=== PATIENT | female | born 2000 | race Caucasian/White ===

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

== ENCOUNTER 2022-03-26 15:39 | Inpatient (IN) ==
--- NOTE | 2022-03-26 17:00 | ED Triage Note ---
Date of Service March 26, 2022 History of Present Illness This patient was briefly evaluated while in triage. An abbreviated physical exam was performed. This patient is a 21-year-old Female for evaluation of dental/oral pain. Referred by Dr. Stack. On antibiotics. Progressing past few days. Now L facial edema. Physical Exam General: L sided facial edema Mouth: Mild inability to open mouth HEART: RRR LUNGS: CTA Initial orders for labs and / or imaging were placed and patient was placed in the waiting area until a bed is available. Please see further documentation for the full ED course.
[2022-03-26 18:20] LABS: Basophils # (auto) 0.03 K/uL (0-0.2); Basophils % (auto) 0.2 %; Eosinophils # (auto) 0.08 K/uL (0-0.5); Eosinophils % (auto) 0.5 %; Hemoglobin 13.7 g/dL (12.0-16.0); Immature Granulocytes # (auto) 0.05 K/uL (0.00-0.02); Immature Granulocytes % (auto) 0.3 %; Lymphocytes # (auto) 2.15 K/uL (1.2-3.4); Lymphocytes % (auto) 13.4 %; Mean Corpuscular Hemoglobin 26.2 pg (25-34); Mean Corpuscular Hgb Conc 33.4 g/dL (32-36); Mean Corpuscular Volume 78.5 fL (80-100); Mean Platelet Volume 9.6 fL (7.4-10.4); Monocytes # (auto) 1.23 K/uL (0.11-0.59); Monocytes % (auto) 7.7 %; Neutrophils # (auto) 12.46 K/uL (1.4-6.5); Neutrophils % (auto) 77.9 %; Platelet Count 328 K/uL (130-400); RDW Coefficient of Variation 13.5 % (11.5-14.5); RDW Standard Deviation 38.4 fL (36.4-46.3); Red Blood Count 5.22 M/uL (4.2-5.4)
[2022-03-26 18:38] LABS: Albumin Globulin Ratio 1.3 (0.9-2); BUN Creatinine Ratio 16.4 (10-20); Bilirubin,Total 0.6 mg/dl (0.2-1.0); Calcium 8.9 mg/dl (8.5-10.1); Creatinine Clr Calc Pharmacy 194.6 ml/min; Est GFR (African American) 149.1 ml/min; Est GFR (Non-African American) 128.7 ml/min; Potassium 3.9 mmol/L (3.5-5.1)
[2022-03-26] MEDS ORDERED: MoRPHine SULFATE 4 MG/ML 1 ML CARP\\VIAL IV STA (18:43)
[2022-03-26] MEDS ORDERED: ONDANSETRON INJ 2 MG/ML 2 ML VIAL IV STA (18:43)
[2022-03-26] MEDS ORDERED: OPTIRAY 320 100ml IV ONE (19:07)
[2022-03-26] MEDS ORDERED: AMPICILLIN/SULBACTAM SOD 3,000 MG in 0.9 % SODIUM CHLORIDE 100 ML IV STA (19:15)
--- NOTE | 2022-03-26 19:18 | Emergency Department Note ---
History of Present Illness General Chief complaint: Dental/Oral Stated complaint: INFECTED TOOTH Time Seen by Provider: 03/26/22 18:25 History of Present Illness Maximum Pain Intensity: 6 This is a 21-year-old female that presents to the emergency department via private vehicle accompanied by mother with complaints of "infected tooth". The patient notes that she began with left-sided facial swelling near the left jaw region on Friday. She believes this was coming from a molar in the region. She believes that the filling fell out. She then placed some [id number] filling substance in the area to help the tooth. She then notes that the swelling seems to worsen as well as the pain. She went to [facility] yesterday morning and was prescribed Augmentin as well as tramadol. She has had a total of 3 doses of Augmentin, last of which was around 3:35 PM today. She has also been taking tramadol. She also has been taking acetaminophen but not more than 4000 mg/day. She did take ibuprofen last of which was yesterday. Patient notes discomfort from the left inferior orbital region through the left premaxillary soft tissues extending to the left anterior neck region. She states that the swelling continues to occur. She was evaluated by dentistry but referred here for further evaluation and management/IV antibiotics noting her amount of involvement of infection. Current pain 03/01. Home Medications Medication Instructions Recorded Confirmed Type amoxicillin 875 mg-potassium 1 tab PO BID 03/26/22 03/26/22 History clavulanate 125 mg tablet Allergies Allergy/AdvReac Type Severity Reaction Status Date / Time sulfamethoxazole [Bactrim] Allergy Intermediate hives Verified 03/26/22 21:17 trimethoprim [Bactrim] Allergy Intermediate hives Verified 03/26/22 21:17 Past Med/Surg History Medical History Anxiety Depression Hypothyroidism Surgical History S/P tonsillectomy and adenoidectomy Family History Other Bipolar disorder Cancer Social History (Updated 03/26/22 @ 21:34 by Nannette Proctor PA-C) Smoking Status: Never smoker Hx Alcohol Use: Yes Alcohol Intake Frequency Comment: infrequent Feels Safe at Home: Yes Review of Systems A total of 10 systems reviewed and were otherwise negative Physical Exam Vital Signs Vital Signs - 24 hr 03/26/22 16:58 Temperature 36.6 C Temperature Source Temporal Artery Scan Pulse Rate 94 H Respiratory Rate 18 Respiratory Effort / Characteristics Non-Labored Respiratory Depth Normal Blood Pressure 122/86 Blood Pressure Mean 98 Pulse Oximetry 97 Oxygen Delivery Method Room Air Sepsis Recent Fever Within 48 Hours No Sepsis New/Unexplained Change in Mental Status No Sepsis Action Taken by Nursing No Action Required VITAL SIGNS - Vital signs and nursing notes were reviewed. Stable and afebrile. GENERAL - 21-year-old female appearing her stated age who is in no acute distress. Communicates well with provider and answers questions appropriately. SKIN -left-sided facial erythema and edema. This is extending from the left inferior orbital region inferiorly through the premaxillary soft tissues into the left anterior neck region. This seems to be focused with the predominant edema overlying the left mid jawline region. HEAD - NC/AT. EYES - PERRL with EOMI bilaterally. Sclera anicteric. EARS - No deformities of external structures noted on gross examination bilaterally. No pain elicited with palpation of the tragus bilaterally. External auditory canals without discharge or otorrhea. Tympanic membranes pearly perez without retraction or bulging. No fluid or purulent material visualized behind the TM. Handle of malleus, umbo, cone of light, pars tensa/flaccid all easily visualized. NOSE - Midline and without cyanosis. No epistaxis or purulent drainage noted. Septum midline without deviation or septal hematoma noted. MOUTH/OROPHARYNX - Without perioral cyanosis. Buccal mucosa pink and moist and without leukoplakia. Tongue midline with equal elevation of palate bilaterally. No tonsillar hypertrophy, erythema, or exudates noted. Fair dentition noted. No drooling, stridor, trismus, wheezing or tripoding. Normal phonation. Left- sided facial edema noted with left anterior cervical lymphadenopathy. NECK - Neck with FROM. Supple to palpation. Left anterior cervical lymphadenopathy noted. No nuchal rigidity. LUNGS - Chest wall symmetric without accessory muscle use, intercostals retractions, or central cyanosis. Normal vesicular breath sounds CTA B/L. No wheezes, rales, or rhonchi appreciated. CARDIAC - RRR with S1/S2. No murmur, rubs, or gallops appreciated. NEUROLOGIC - Cranial nerves II through XII grossly intact. PSYCH - A&Ox3 and cooperates fully with examiner. Pt is very pleasant and interacts well with examiner. Course Administered Medications Lactated Ringer's (Lr) 1,000 mls @ 200 mls/hr IV .Q5H ONE Stop: 03/27/22 01:34 Last Admin: 03/26/22 22:27 Dose: 200 mls/hr Documented by: [id number] Discontinued Medications Ampicillin Sodium/Sulbactam Sodium 3,000 mg/ Sodium Chloride 108 mls @ 200 mls/hr IV NOW STA; Protocol Stop: 03/26/22 19:47 Last Infusion: 03/26/22 20:31 Dose: 0 mls/hr Documented by: [id number] Admin: 03/26/22 19:54 Dose: 200 mls/hr Documented by: [id number] Ioversol (Optiray 320 100ml) 90 ml IV ONCE ONE Stop: 03/26/22 19:08 Last Admin: 03/26/22 19:09 Dose: 90 ml Documented by: [id number] Ketorolac Tromethamine (Ketorolac Tromethamine 15 Mg/Ml Vial) 15 mg IV NOW ONE Stop: 03/26/22 21:34 Last Admin: 03/26/22 21:55 Dose: 15 mg Documented by: [id number] Morphine Sulfate (Morphine Sulfate 4 Mg/Ml 1 Ml Carp\\Vial) 4 mg IV NOW STA Stop: 03/26/22 18:44 Last Admin: 03/26/22 19:19 Dose: 4 mg Documented by: [id number] Ondansetron HCl (Ondansetron Inj 2 Mg/Ml 2 Ml Vial) 4 mg IV NOW STA Stop: 03/26/22 18:44 Last Admin: 03/26/22 19:19 Dose: 4 mg Documented by: [id number] Medical Decision Making Laboratory Data Result diagrams: 03/26/22 17:45 03/26/22 17:45 Lab Results 03/26/22 03/26/22 03/26/22 Range/Units 17:45 17:45 17:45 WBC 16.00 H (4.8-10.8) K/uL RBC 5.22 (4.2-5.4) M/uL Hgb 13.7 (12.0-16.0) g/dL Hct 41.0 (37-47) % MCV 78.5 L (80-100) fL MCH 26.2 (25-34) pg MCHC 33.4 (32-36) g/dL RDW Std Deviation 38.4 (36.4-46.3) fL RDW Coeff of Compa 13.5 (11.5-14.5) % Plt Count 328 (130-400) K/uL MPV 9.6 (7.4-10.4) fL Immature Gran % (Auto) 0.3 % Neut % (Auto) 77.9 % Lymph % (Auto) 13.4 % [place] % (Auto) 7.7 % Eos % (Auto) 0.5 % Baso % (Auto) 0.2 % Neut # (Auto) 12.46 H (1.4-6.5) K/uL Lymph # (Auto) 2.15 (1.2-3.4) K/uL [place] # (Auto) 1.23 H (0.11-0.59) K/uL Eos # (Auto) 0.08 (0-0.5) K/uL Baso # (Auto) 0.03 (0-0.2) K/uL Immature Gran # (Auto) 0.05 H (0.00-0.02) K/uL Sodium 136 (136-145) mmol/L Potassium 3.9 (3.5-5.1) mmol/L Chloride 106 (98-107) mmol/L Carbon Dioxide 23 (21-32) mmol/L Anion Gap 7 (3-11) BUN 10 (6-23) mg/dl Creatinine 0.61 (0.6-1.2) mg/dl Est Cr Clr Drug Dosing 194.6 ml/min Est GFR ( Amer) 149.1 ml/min Est GFR (Non-Af Amer) 128.7 ml/min BUN/Creatinine Ratio 16.4 (10-20) Glucose 105 H (70-99(Fasting)) mg/dl Calcium 8.9 (8.5-10.1) mg/dl Total Bilirubin 0.6 (0.2-1.0) mg/dl AST 11 L (13-39) U/L ALT 6 L (7-52) U/L Alkaline Phosphatase 77 (34-104) U/L Total Protein 7.0 (6.0-8.3) gm/dl Albumin 4.0 (3.4-5.0) gm/dl Globulin 3.0 (2.5-4.0) gm/dl Albumin/Globulin Ratio 1.3 (0.9-2) TSH 5.800 H (0.300-4.500) uIu/ml Free T4 1.07 (0.61-1.60) ng/dl Imaging Data Radiologist's Impression: Soft Tissue Neck CT 03/26/22 17:00 CT soft tissue neck w con CLINICAL HISTORY: L facial pain/edema COMPARISON STUDY: No previous studies for comparison. CT DOSE: 504.69 mGy.cm TECHNIQUE: Standard CT of the Neck was performed with IV contrast. A dose lowering technique was utilized adhering to the principles of ALARA. Contrast Volume: Optiray 320, 90 ml FINDINGS: The patient is status post placement of a dental implant versus root canal involving the first mandibular molar on the left. There is a lucency seen inferior to the root at this site with cortical destruction present. The findings are highly suspicious for dental abscess. There is associated diffuse swelling of the adjacent left side of the face with diffuse edema of the masseter muscles. Skin thickening and subcutaneous edema is also present involving the left side of the face adjacent to the mandible. No enhancing subcutaneous abscess is identified. Salivary glands: Parotid and submandibular salivary glands are within normal limits. The thyroid gland is also within normal limits. Lymph nodes: There are no pathologically enlarged lymph nodes. However, there is mild reactive lymphadenopathy involving the cervical lymph node chains bilaterally. There is no evidence for soft tissue mass within the neck bilaterally. Airway: The cervical airway is widely patent. The epiglottis and aryepiglottic folds are normal bilaterally. The vocal cords are symmetric bilaterally. Vascular structures: No gross vascular abnormalities are seen. Paranasal sinuses: There is prominent mucosal thickening involving the left maxillary sinus. The remaining imaged paranasal sinuses are clear. Osseous structures: No other acute osseous abnormalities are identified. IMPRESSION: 1. CT findings characteristic of a left mandibular dental abscess with prominent soft tissue swelling of the left masseter muscles and subcutaneous fat on the left. 2. Associated reactive lymphadenopathy is present. 3. No enhancing soft tissue abscess is seen. 4. Chronic left maxillary sinusitis is also present. ACT 112: Negative or not required by law. Electronically signed by: Vipin Moore M.D. 03/26/2022 7:28 PM MDM Narrative Patient was seen and evaluated as above in room D07. Review was performed of nursing notes and vital signs. I did review pertinent previous visits and patient history. After obtaining a thorough history and physical examination the above work up was performed. Patient presents to us today for evaluation of left-sided facial swelling, pain. She clinically appears well but does have a fair amount of left-sided facial edema and erythema. This appears to be dental in origin. Options of care were discussed with the patient. IV access was established. Labs were drawn. Patient was initially evaluated in the triage area and then formally evaluated in room D7. She was medicated with IV morphine for pain, IV Zofran for nausea. Labs reveal white blood cell count of 16,000. No anemia. No emergent metabolic disturbance. COVID test negative. CT imaging as above. CT findings characteristic of a left mandibular dental abscess with prominent soft tissue swelling of the left masseter muscles and subcutaneous fat on the left. IV antibiotics ordered. Case discussed with the hospitalist, Dr. Church as well as the on-call oral surgeon, Dr. Marshall. Patient will be admitted to the hospital for further evaluation and management. No evidence of Ludwigs angina at the present time or airway compromise. GCS: 15 In the evaluation and treatment of this patient, the following differential diagnoses were considered: Periapical Abscess, Osteonecrosis of the Jaw, Dental Fracture, Dental Caries, Americo's Angina, Vincent's Angina, Facial Cellulitis. Impression & Plan Cellulitis and abscess of face Discharge Plan Visit Data Chief Complaint: Dental/Oral Stated Complaint: INFECTED TOOTH ED Provider: Ephraim Campbell ED Midlevel Provider: Alan Anne Discharge Problem: Cellulitis and abscess of face Patient Disposition: Admitted As Inpatient Condition: Good Discharge Instructions Interventions: ED Discharge Assessment Last Done: 03/26/22 22:16
--- NOTE | 2022-03-26 19:30 | CT Scan Report ---
CT soft tissue neck w con CLINICAL HISTORY: L facial pain/edema COMPARISON STUDY: No previous studies for comparison. CT DOSE: 504.69 mGy.cm TECHNIQUE: Standard CT of the Neck was performed with IV contrast. A dose lowering technique was ut ilized adhering to the principles of ALARA. Contrast Volume: Optiray 320, 90 ml FINDINGS: The patient is status post placement of a dental implant versus root canal involving the fi rst mandibular molar on the left. There is a lucency seen inferior to the root at this site with armando ical destruction present. The findings are highly suspicious for dental abscess. There is associated diffuse swelling of the adjacent left side of the face with diffuse edema of the masseter muscles. Sk in thickening and subcutaneous edema is also present involving the left side of the face adjacent to the mandible. No enhancing subcutaneous abscess is identified. Salivary glands: Parotid and submandibular salivary glands are within normal limits. The thyroid gland is also within normal limits. Lymph nodes: There are no pathologically enlarged lymph nodes. However, there is mild reactive lympha denopathy involving the cervical lymph node chains bilaterally. There is no evidence for soft tissue mass within the neck bilaterally. Airway: The cervical airway is widely patent. The epiglottis and aryepiglottic folds are normal bilat erally. The vocal cords are symmetric bilaterally. Vascular structures: No gross vascular abnormalities are seen. Paranasal sinuses: There is prominent mucosal thickening involving the left maxillary sinus. The chen ining imaged paranasal sinuses are clear. Osseous structures: No other acute osseous abnormalities are identified. IMPRESSION: 1. CT findings characteristic of a left mandibular dental abscess with prominent soft tissue swelling of the left masseter muscles and subcutaneous fat on the left. 2. Associated reactive lymphadenopathy is present. 3. No enhancing soft tissue abscess is seen. 4. Chronic left maxillary sinusitis is also present. ACT 112: Negative or not required by law. Electronically signed by: Vipin Moore M.D. 03/26/2022 7:28 PM
[2022-03-26] MEDS ORDERED: KETOROLAC TROMETHAMINE 15 MG/ML VIAL IV PRN (20:34)
[2022-03-26] MEDS ORDERED: traMADol HCL 50 MG TABLET PO PRN (20:34)
[2022-03-26] MEDS ORDERED: IBUPROFEN 200 MG TAB PO PRN (20:34)
[2022-03-26] MEDS ORDERED: LACTATED RINGER'S 1,000 ML IV ONE (20:35)
--- NOTE | 2022-03-26 20:43 | History & Physical Report ---
Date of Service March 26, 2022 Assessment & Plan (1) Dental abscess: (2) Anxiety: (3) Depression: (4) Hypothyroidism: Plan: This is a 21yo F with a PMH of depression, anxiety, hypothyroidism and other medical problems listed below who presents with ongoing dental pain and swelling x 4 days and was found to have left mandibular dental abscess. Please see Dr. Church's addendum for assessment and plan details. History of Present Illness Chief Complaint: dental pain Primary Care Provider: Petar Medrano, DO This is a 21yo F with a PMH of depression, anxiety, hypothyroidism and other medical problems listed below who presents with ongoing dental pain x 4 days. Endorses dental pain on lower left side of mouth that is constant and sharp. Developed swelling in that area the next day which has extended towards left ear and neck. Was seen in urgent care yesterday and prescribed Augmentin for infection. Also followed up with dentist in [place] but was referred to ED for further evaluation and IV antibiotics. Has been taking tramadol since prescribed by urgent care as well as ibuprofen and Tylenol that has reduced pain. Has decreased appetite and fluid intake due to difficulty fully opening mouth. No shortness of breath or difficulty breathing. No fever, chills, congestion, chest pain, SOB, nausea, vomiting, abdominal pain, dysuria or diarrhea. Not taking any scheduled medications at home. PCP is Dr. Medrano, whom she is due to have thyroid lab work with. Previously on levothyroxine. VSS, leukocytosis of 16, other lab work unremarkable. Covid screen negative. CT findings characteristic of a left mandibular dental abscess with prominent soft tissue swelling of the left masseter muscles and subcutaneous fat on the left. Allergies Allergy/AdvReac Type Severity Reaction Status Date / Time sulfamethoxazole [Bactrim] Allergy Intermediate hives Verified 03/26/22 21:17 trimethoprim [Bactrim] Allergy Intermediate hives Verified 03/26/22 21:17 Home Medications Medication Instructions Recorded Confirmed Type amoxicillin 875 mg-potassium 1 tab PO BID 03/26/22 03/26/22 History clavulanate 125 mg tablet Past Med/Surg History Medical History Anxiety Depression Hypothyroidism Surgical History S/P tonsillectomy and adenoidectomy Family History Other Bipolar disorder Cancer Social History (Updated 03/26/22 @ 21:34 by Nannette Proctor PA-C) Smoking Status: Never smoker Hx Alcohol Use: Yes Alcohol Intake Frequency Comment: infrequent Feels Safe at Home: Yes Review of Systems Review of Systems: At least ten systems reviewed and negative except as noted in the HPI. Physical Exam Physical Exam: General Appearance: vitals as above, appears ill, morbidly obese Head: normocephalic, atraumatic Eyes: normal inspection, PERRL, conjunctivae normal, anicteric sclerae ENT/neck: external ear and nose normal, edema and erythema of lower left orbital area with extension to premaxillary soft tissues and left anterior neck. Warm and tender to touch. Two finger trismus Respiratory: normal respiratory effort, lungs clear to auscultation, no wheeze, rales, rhonchi. No accessory muscle use Cardiovascular: regular rate, rhythm, no murmur, normal peripheral pulses. Vessels: no JVD Chest: normal inspection of chest Abdomen/GI: normal bowel sounds, soft, nontender, no hepatosplenomegaly Extremities/Musculoskeletal: no cyanosis or clubbing, extremities motor strength 5/5 Neurologic: PERRL, EOMI, accommodation nl, no face palsy, no dysarthria, CN's II-XI intact bilaterally and moves all extremities Psychiatric: A+Ox3, anxious Skin: no rashes, normal color, warm/dry Results & Data Results & Data ([facility]) Vital Signs (Past 12 Hours) Vital Signs Temp Pulse Resp BP Pulse Ox 03/26/22 16:58 36.6 C 94 H 18 122/86 97 Laboratory Results Short CBC 03/26/22 Range/Units 17:45 WBC 16.00 H (4.8-10.8) K/uL Hgb 13.7 (12.0-16.0) g/dL Hct 41.0 (37-47) % Plt Count 328 (130-400) K/uL BMP 03/26/22 17:45 Sodium 136 Potassium 3.9 Chloride 106 Carbon Dioxide 23 BUN 10 Creatinine 0.61 Glucose 105 H Calcium 8.9 Liver Function 07/05/22 Range/Units 17:45 Total Bilirubin 0.6 (0.2-1.0) mg/dl AST 11 L (13-39) U/L ALT 6 L (7-52) U/L Alkaline Phosphatase 77 (34-104) U/L Albumin 4.0 (3.4-5.0) gm/dl Diagnostic Findings Soft tissue neck CT: IMPRESSION: 1. CT findings characteristic of a left mandibular dental abscess with prominent soft tissue swelling of the left masseter muscles and subcutaneous fat on the left. 2. Associated reactive lymphadenopathy is present. 3. No enhancing soft tissue abscess is seen. 4. Chronic left maxillary sinusitis is also present. Supervising Physician Co-Signing Physician Notes IM ATTENDING : Patient seen and examined. History obtained from patient, family, and records. Preceding documentation by Ms. Nannette Proctor PA-C reviewed. FINAL ASSESSMENT AND PLAN as follows : Odontogenic infection Failed outpatient treatment No overt sepsis for now Hypothyroidism, off supplementation the last 2 years as per patient request Patient mother requesting for TSH checked during confinement due to generalized weakness symptoms. F [facility] Oral maxillofacial surgery consultation Re: Odontogenic infection (ER provider already in touch with Dr. Marshall.) N.p.o. after midnight until patient seen by OMFS in anticipation of procedural intervention. Check TSH as per patient's mother request. Patient agreeable to initiation of low-dose medication if abnormal. DVT prophylaxis SCDs. Re: Possible procedure Recommend Lovenox 40 mg subcutaneous daily if no current indication from surgical standpoint. Full code Patient mother requesting updates from providers. Cathy Maile Contreras, contact #[phone]. Text document was generated using [employer] voice recognition software. It may contain grammatical or spelling errors. Kindly contact undersigned for clarification of any documentation item in question.
[2022-03-26] MEDS ORDERED: KETOROLAC TROMETHAMINE 15 MG/ML VIAL IV ONE (21:33)
[2022-03-26 22:30] LABS: Thyroid Stimulating Hormone 5.8 uIu/ml (0.300-4.500)
[2022-03-26] MEDS ORDERED: LORazepam 0.5 MG in SYRINGE 0.25 ML IV PRN (22:52)
[2022-03-26] MEDS ORDERED: PROMETHAZINE HCL 12.5 MG in SODIUM CHLORIDE 0.9% 50 ML IV PRN (22:52)
[2022-03-26] MEDS ORDERED: oxyCODONE HCL IR 5 MG TAB (IMMEDIATE RELEASE) PO PRN (22:52)
[2022-03-26 23:38] LABS: T4 Free Thyroxine 1.07 ng/dl (0.61-1.60)
[2022-03-27] MEDS: AMPICILLIN/SULBACTAM SOD 3,000 MG in 0.9 % SODIUM CHLORIDE 100 ML IV SCH ×4 (02:53→21:01)
[2022-03-27] MEDS: LACTATED RINGER'S 1,000 ML IV SCH ×2 (02:53→14:47)
[2022-03-27] MEDS: ACETAMINOPHEN 325 MG TAB PO PRN ×3 (05:52→22:20)
[2022-03-27 08:12] LABS: Basophils # (auto) 0.02 K/uL (0-0.2); Basophils % (auto) 0.2 %; Eosinophils % (auto) 0.8 %; Hematocrit (blood only) 37.5 % (37-47); Hemoglobin 12.2 g/dL (12.0-16.0); Immature Granulocytes # (auto) 0.03 K/uL (0.00-0.02); Immature Granulocytes % (auto) 0.2 %; Lymphocytes # (auto) 1.88 K/uL (1.2-3.4); Lymphocytes % (auto) 15.6 %; Mean Corpuscular Hemoglobin 25.7 pg (25-34); Mean Corpuscular Hgb Conc 32.5 g/dL (32-36); Mean Corpuscular Volume 78.9 fL (80-100); Mean Platelet Volume 9.3 fL (7.4-10.4); Monocytes # (auto) 0.91 K/uL (0.11-0.59); Monocytes % (auto) 7.5 %; Neutrophils # (auto) 9.14 K/uL (1.4-6.5); Neutrophils % (auto) 75.7 %; Platelet Count 316 K/uL (130-400); RDW Coefficient of Variation 13.4 % (11.5-14.5); RDW Standard Deviation 38.7 fL (36.4-46.3); Red Blood Count 4.75 M/uL (4.2-5.4); White Blood Count 12.08 K/uL (4.8-10.8)
[2022-03-27 08:36] LABS: Anion Gap 6 (3-11); BUN Creatinine Ratio 16.9 (10-20); Blood Urea Nitrogen 10 mg/dl (6-23); Calcium 8.3 mg/dl (8.5-10.1); Carbon Dioxide 26 mmol/L (21-32); Chloride 104 mmol/L (98-107); Creatinine Clr Calc Pharmacy 198.5 ml/min; Est GFR (African American) > 150.0 ml/min; Est GFR (Non-African American) 130.1 ml/min; Glucose 82 mg/dl (70-99(Fasting)); Potassium 3.6 mmol/L (3.5-5.1); Sodium 136 mmol/L (136-145)
--- NOTE | 2022-03-27 10:32 | Oral/Maxillofacial Consult ---
Date of Consultation March 27, 2022 Assessment & Plan (1) Cellulitis and abscess of face: (2) Dental abscess: (3) Failing root canal: History of Present Illness Attending Physician: Stephanie Layne MD History of Present Illness Oral Maxillofacial Surgery Exam Present Complaint: I have pain/swelling/drainage from my infected lower left molar and swelling left side of the jaw. Symptoms have been ongoing for a while. Had an incomplete root canal on # 18 now grossly infected. Oral Exam: Finding--Swollen carious tooth, tender gingival tissue with deep pocket formation.# 18 removal is clinical indicated. Imaging: Panorex: The Panorex X Ray was reviewed, there were no abnormal findings other then the impacted/malposed wisdom teeth and a carious abscessed # 19 and # 20 The TMJ are well positioned and no evidence of bony pathology. The sinus, supporting bone all WNL Evaluated the nerve/sinus relationship to the roots of the teeth. The following teeth were impacted # 1,16,17,32 The following teeth are abscessed and failing root canals--19 and 20 -- large radiolucent areas are present Soft tissue: Hard swelling left submandibular gland area and left mucobuccal fold. Not yet ready for I and D hopefully tomorrow AM. floor of the mouth, tongue, hard/soft palate, posterior pharyngeal area all with in normal limits, no pathology or abnormal findings noted. Oral Care: Overall oral care is good Occlusion: Class I TMJ exam: Due to limited opening not able to determine Periodontal exam: Overall Healthy gingival tissue without evidence of periodontal pathology. Head/Neck exam: Neck is swollen left side, somewhat limited ROM due to infection .NOT Able to extend and flex neck w/o difficult due to current infection, no airway issues, no evidence of sleep apnea. Treatment Plan: Continue IV antibiotics Get dental x rays from her dentist to see if there is any other extractions that are needed. Set up for Extraction and I&D tomorrow Set up with general anesthesia in hospital all due to complexity of the procedure I reviewed the treatment plan and consent with the patient I will finalize after U see the x rays Need area to become more fluctuant before plan I&D hopefully 24 hours will be ready Pending return from her mother Understanding was expressed. Time was given for questions regarding the surgery, risks and post op care. Discussed alternative to treatment--procedure as planned, Do not do surgery Risks discussed: Bleeding,Pain,swelling,infection, dry socket, delayed healing, nerve injury to face,lips,tongue,chin area which could be permanent (rare). TMJ, jaw stiffness, change in bite (rare), ear pain (referred). Sinus problems like fistula or infection. Need to leave a small root fragment in place to avoid injury to nerve or sinus. Relationship of wisdom teeth to nerve/sinus and risk of jaw fracture. Home care reviewed: tooth brushing, rinsing, follow up care with Dr Marshall. diet=[id number] dental. Discussed activity level, driving/work while on Rx pain Meds. Surgery to be set up once insurance is verified or coverage Allergies Allergy/AdvReac Type Severity Reaction Status Date / Time sulfamethoxazole [Bactrim] Allergy Intermediate hives Verified 03/26/22 21:17 trimethoprim [Bactrim] Allergy Intermediate hives Verified 03/26/22 21:17 Home Medications Medication Instructions Recorded Confirmed Type amoxicillin 875 mg-potassium 1 tab PO BID 03/26/22 03/26/22 History clavulanate 125 mg tablet Patient History Medical History (Updated 03/28/22 @ 11:27 by David Herrera MD) Anxiety Depression Hypothyroidism Obesity Surgical History S/P tonsillectomy and adenoidectomy Family History Other Bipolar disorder Cancer Social History (Updated 03/26/22 @ 21:34 by Nannette Proctor PA-C) Smoking Status: Never smoker Hx Alcohol Use: Yes Alcohol type: hard liquor Alcohol Intake Frequency Comment: infrequent Hx Substance Use: No Preferred Language: Jordanian Communication Ability: Effective Credit Reference Clerk Required: No Beliefs That Will Affect Care: None Current Living Situation: Other Current Living Situation Comment: lives with and cares for grandma Other Information That Helps Us Care for You: No Feels Safe at Home: Yes Safety Concerns: Feels Safe At This Time Assistive Devices: None Results & Data ([facility]) Vital Signs (Past 12 Hours) Vital Signs Temp Pulse Resp BP Pulse Ox 03/27/22 07:56 37.1 C 82 16 104/71 97 03/26/22 22:30 37.4 C 77 20 138/84 98 PG Care Time/CCT Total # of Minutes Spent Total Time Spent with Patient: Total time spent is greater than 50% in coordination of care (as documented) at patient's floor/unit and/or counseling patient: Coding Level of Care Code 10941 Inpt Consult Level 3 Diagnoses Cellulitis and abscess of face L03.211; L02.01 Dental abscess K04.7 Failing root canal M27.59
--- NOTE | 2022-03-27 14:32 | Hospitalist Progress Note ---
Date of Service March 27, 2022 Assessment & Plan (1) Dental abscess: (2) Anxiety: (3) Depression: (4) Hypothyroidism: Plan: 21yo F with a PMH of depression, anxiety, hypothyroidism and other medical problems who presented with ongoing dental pain and swelling x 4 days and was found to have left mandibular dental abscess. Soft tissue neck CT show left mandibular dental abscess with prominent soft tissue swelling of the left masseter muscles and subcutaneous fat in the left. Leukocytosis improving Continue IV Unasyn Oromaxillofacial consult noted Plan for OR tomorrow. Continue full liquid for now and NPO PMN Pain control TSH is 5.8 (elevated) but FT4 is normal 1.07. Patient has been off levothyroxine for past 6 months. PCP to monitor Admission and Anticipated Discharge Date Admission Date: March 26, 2022 Subjective Patient seen and examined Reports left jaw/mouth swelling and pain Reports pain is controlled on current regimen Denied fever, headache, nausea, vomiting, abd pain, diarrhea Denied dysuria, freq, urgency, hematuria Review of Systems Review of Systems: All systems reviewed & are unremarkable except as noted in Subjective Physical Exam Constitutional: + well hydrated and + obese; no acute distress Eyes: PERRL, conjunctivae normal, anicteric sclerae ENMT: Left facial swelling and tenderness Respiratory: normal respiratory effort, lungs clear to auscultation Cardiovascular: RRR, no murmur, no edema Gastrointestinal (Abdomen): normal bowel sounds, soft, nontender, no hepatosplenomegaly Musculoskeletal: no cyanosis or clubbing, extremities motor strength 5/5 Neurologic: PERRL, EOMI, accommodation nl, no face palsy, no dysarthria Psychiatric: A+Ox3, euthymic affect Results & Data Results & Data ([facility]) Vital Signs (Past 12 Hours) Vital Signs Temp Pulse Resp BP Pulse Ox 03/27/22 07:56 37.1 C 82 16 104/71 97 Laboratory Results Abnormal lab results 03/26/22 03/26/22 03/26/22 Range/Units 17:45 17:45 17:45 WBC 16.00 H (4.8-10.8) K/uL MCV 78.5 L (80-100) fL Neut # (Auto) 12.46 H (1.4-6.5) K/uL Pender # (Auto) 1.23 H (0.11-0.59) K/uL Immature Gran # (Auto) 0.05 H (0.00-0.02) K/uL Creatinine (0.6-1.2) mg/dl Glucose 105 H (70-99(Fasting)) mg/dl Calcium (8.5-10.1) mg/dl AST 11 L (13-39) U/L ALT 6 L (7-52) U/L TSH 5.800 H (0.300-4.500) uIu/ml 03/27/22 03/27/22 Range/Units 07:13 07:13 WBC 12.08 H (4.8-10.8) K/uL MCV 78.9 L (80-100) fL Neut # (Auto) 9.14 H (1.4-6.5) K/uL Pender # (Auto) 0.91 H (0.11-0.59) K/uL Immature Gran # (Auto) 0.03 H (0.00-0.02) K/uL Creatinine 0.59 L (0.6-1.2) mg/dl Glucose (70-99(Fasting)) mg/dl Calcium 8.3 L (8.5-10.1) mg/dl AST (13-39) U/L ALT (7-52) U/L TSH (0.300-4.500) uIu/ml
[2022-03-28] MEDS: AMPICILLIN/SULBACTAM SOD 3,000 MG in 0.9 % SODIUM CHLORIDE 100 ML IV SCH ×4 (03:16→21:43)
[2022-03-28] MEDS: LACTATED RINGER'S 1,000 ML IV SCH ×2 (03:20→18:33)
[2022-03-28 07:13] LABS: Hematocrit (blood only) 36.1 % (34.1-44.9); Hemoglobin 11.8 g/dl (12.0-16.0); Mean Corpuscular Hemoglobin 25.9 pg (25.0-34.0); Mean Corpuscular Hgb Conc 32.7 g/dL (32.0-36.0); Mean Corpuscular Volume 79.2 fL (80.0-100.0); Mean Platelet Volume 9.3 fL (9.4-12.3); Platelet Count 308 K/uL (130-400); RDW Standard Deviation 37.1 fL (36.4-46.3); Red Blood Count 4.56 M/uL (3.93-5.22)
[2022-03-28 07:27] LABS: Anion Gap 5 (3-11); BUN Creatinine Ratio 19.6 (10-20); Blood Urea Nitrogen 10 mg/dl (6-23); Calcium 8.4 mg/dl (8.5-10.1); Carbon Dioxide 28 mmol/L (21-32); Chloride 105 mmol/L (98-107); Creatinine Clr Calc Pharmacy 229.6 ml/min; Est GFR (African American) > 150.0 ml/min; Est GFR (Non-African American) 136.5 ml/min; Glucose 86 mg/dl (70-99(Fasting)); Potassium 3.9 mmol/L (3.5-5.1); Sodium 138 mmol/L (136-145)
[2022-03-28] MEDS ORDERED: LIDOCAINE 2% 2 ML VIAL/AMP(20MG/ML) INFIL ONE (10:51)
[2022-03-28] MEDS ORDERED: ROCURONIUM BROMIDE 10 MG/ML 5 ML VIAL IV ONE (10:51)
[2022-03-28] MEDS ORDERED: ONDANSETRON INJ 2 MG/ML 2 ML VIAL ONE (10:51)
[2022-03-28] MEDS ORDERED: DEXAMETHASONE SOD INJ 4 MG/ML VIAL ONE (10:51)
[2022-03-28] MEDS ORDERED: PROPOFOL IV EMULSION 10 MG/ML 20 ML VIAL IV ONE (10:51)
[2022-03-28] MEDS ORDERED: fentaNYL citrate 100 MCG/2 ML VIAL ONE (10:52)
[2022-03-28] MEDS ORDERED: MIDAZOLAM HCL 1 MG/ML 2ML VIAL ONE (10:52)
[2022-03-28] MEDS ORDERED: BUPIVACAINE 0.5 % 5 MG/1 ML MPF 30ML VIAL ONE (10:56)
[2022-03-28] MEDS ORDERED: CHLORHEXIDINE GLUCONATE 0.12% 480 ML ONE (10:56)
[2022-03-28] MEDS ORDERED: STERILE IRRIGATING OPTH SOLUTION (BSS) 15ML ONE (10:56)
[2022-03-28 10:57] LABS: Pregnancy Test, Serum Negative (Negative)
[2022-03-28] MEDS ORDERED: EPINEPHrine INJ 1 MG/ML AMP ONE (10:59)
[2022-03-28] MEDS ORDERED: HYDROmorphone INJ 1 MG/ML SYRINGE IV PRN (11:24)
[2022-03-28] MEDS ORDERED: ONDANSETRON INJ 2 MG/ML 2 ML VIAL IV PRN (11:24)
[2022-03-28] MEDS ORDERED: ePHEDrine sulfate 50 MG/ML AMP IV PRN (11:24)
[2022-03-28] MEDS ORDERED: PROMETHAZINE HCL 6.25 MG in SODIUM CHLORIDE 0.9% 50 ML IV PRN (11:24)
[2022-03-28] MEDS ORDERED: ATROPINE SULFATE 0.1 MG/ML 10ML SYR IV PRN (11:24)
--- NOTE | 2022-03-28 11:28 | Anesthesiology Consultation ---
Date of Service March 28, 2022 Assessment & Plan (1) Encounter for pre-operative examination: Chart Review Chart Review: Acceptable Risk for Surgery and Patient NOT seen in Pre Admission Testing Consults Requested none History Surgery Operation Date: 03/28/22 11:30 Proposed Procedures p Left Side Incision and Drainage - Jeremy Marshall, DMD s Extraction 19 - Jeremy Marshall DMD Height/Weight Height: 5 ft 4 in Weight: 128.1 kg Allergies Allergy/AdvReac Type Severity Reaction Status Date / Time sulfamethoxazole [Bactrim] Allergy Intermediate hives Verified 03/26/22 21:17 trimethoprim [Bactrim] Allergy Intermediate hives Verified 03/26/22 21:17 Medications Home Medications Medication Instructions Recorded Confirmed Last Taken amoxicillin 875 mg-potassium 1 tab PO BID 03/26/22 03/26/22 Unknown clavulanate 125 mg tablet Active Medications Generic Name Dose Route Start Last Admin Trade Name Freq PRN Reason Stop Dose Admin Acetaminophen 650 mg 03/26/22 20:34 03/27/22 22:20 Acetaminophen 325 Mg Tab PO 04/25/22 20:33 650 mg Q6H PRN Administration Fever/pain Lactated Ringer's 1,000 mls @ 80 mls/hr 03/27/22 02:00 03/28/22 03:20 Lr IV 04/26/22 01:59 80 mls/hr .[id number] THOMAS Administration Ampicillin Sodium/Sulbactam 108 mls @ 200 mls/hr 03/27/22 04:00 03/28/22 10:37 Sodium 3,000 mg/ Sodium IV 04/06/22 03:59 Infused Chloride Q6H THOMAS Infusion Protocol NPO Date Last Intake of Fluids: 03/27/22 Time Last Intake of Fluids: 17:00 Date Last Intake of Solids: 03/25/22 Time Last Intake of Solids: 18:00 Past Medical History Medical History (Updated 03/28/22 @ 11:27 by David Herrera MD) Anxiety Depression Hypothyroidism Obesity Exercise / Class Metabolic Activity II 4-5 Yardwork/Stairs/Walk up hill Past Family History Family History Other Bipolar disorder Cancer Past Surgical History Surgical History S/P tonsillectomy and adenoidectomy Past Anesthesia History No Hx of Anesthesia Complications and No Family Hx of Anesthesia Complications History of PONV No Hx of PONV and No Hx of Motion Sickness Social History Smoking Status: Never smoker Hx Alcohol Use: Yes Alcohol type: hard liquor alcohol intake frequency: holidays/special occasions only Hx Substance Use: No substance use type: does not use Physical Exam Vital Signs Last Vital Signs Temp 37.5 C 03/28/22 10:53 Pulse 76 03/28/22 10:53 Resp 18 03/28/22 10:53 BP 124/76 03/28/22 10:53 Pulse Ox 97 03/28/22 10:53 Testing Laboratory Results 03/28/22 06:32 03/28/22 06:32
--- NOTE | 2022-03-28 11:36 | History & Physical Bridge Note ---
Date of Service March 28, 2022 History & Physical Bridge Note I have examined the patient, reviewed the History & Physical and in the interval since the performance of the History & Physical I have noted the following changes of clinical significance: no changes noted Still swollen but now localized to the submandibular area left side and the mucobuccal fold # 19-20 area Reviewed treatment plan OK for surgery
[2022-03-28] MEDS ORDERED: BUPIVACAINE/EPINEPHRINE 0.5% 1:200,000 1.8 ML CARP ONE (11:52)
[2022-03-28] MEDS ORDERED: GLYCOPYRROLATE 0.2 MG/ML VIAL ONE (12:27)
[2022-03-28] MEDS ORDERED: NEOSTIGMINE METHYLSULFATE 1 MG/ML 10ML VIAL ONE (12:27)
--- NOTE | 2022-03-28 12:39 | Operative Report ---
PG Post Operative Report Pre & Post Diagnosis Operation Date: 03/28/22 11:30 Pre-Op Diagnosis: ODONTOGENIC INFECTION left side Post-Op Diagnosis: ODONTOGENIC INFECTION left side from abscessed # 19,20 I identified the patient and participated in the time-out.: Yes Procedure Coding K12.2 CPT 35784 [place] I&D submandibular, raw stock machine loader and sublingual spaces K04.7 [id number] x 2 19,20 Extraction of #19 and #20 Operation Date: 03/28/22 11:30 Actual Procedures p Left Side Incision and Drainage(Not Applicable) - Jeremy Marshall DMD s Extraction of lower left molars tooth 19 & 20(Left) - Jeremy Marshall DMD Surgeon Jeremy Marshall DMD Machine Sorter none Estimated Blood Loss 5 Findings Consistent with Post-Op Diagnosis acute infection left jaw and face Specimens I&D fluid and soft tissue reactive tissue reaction Drains none Anesthesia Type General Complications none Indications acute facial infection Description of Procedure Actual Procedures p Incision and Drainage Submandibular Abscess; Removal of Tooth #19 and 20 (Not Applicable) - Jeremy Marshall DMD Once cleared for surgery general anesthesia was achieved, the eyes were protected by the anesthesia dept criteria. A time out was take for patient ID, antibiotics, equipment and position verification once all agreed the procedure began. Local anesthesia using Marcaine with a vasoconstrictor ( 1.8 ml per site) given into left inferior alveolar nerve A throat pack was placed after the oral cavity was irrigated with saline. Once a surgical level of anesthesia was obtained and the local anesthesia was given time for the blocks the surgery was started. I turned my attention to the infection which was located in the floor of the mouth and submental area. The tongue was elevated and there was also swelling associated with tooth # 28 ( see CT scan report) Incision and Drainage Using a 15 blade an incision was made lateral to the alveolar ridge and medial to the duct of the submandibular gland. Once the incision was made a lot of pus extruded from the site. This drainage was cultured for anaerobic and aerobic bacteria. A curved hemostat was carefully placed into the infected space along the medial side of the lower jaw and into the submental space and submandibular space. The subperiosteal and raw stock machine loader spaces were also drained. A lot more drainage was now allowed to escape. I palpated the cheek, chin and submental area and no further drainage was expressed. The area was irrigated with at least 100 ml of NS solution. I explored the mandibular space. I now turned my attention to remove the # 19,20 tooth. Lower # 19 and 20 The full thick Muco-periosteal flap was made on the facial aspect from # 22-18 area . The flap was reflected to expose the the subperiosteal space the bone adjacent to the teeth. The rongeur was used to remove bone, the tooth was removed with a 301 elevator, the mental nerve was intact, there was a large amount of granulation tissue on the apex and some more pus that was expressed.Upon dissection of the subperiosteal space a very dense foreign body like reactive tissue mass was noted and sent for pathology. Due to the large amount of purulent drainage from the oral I&D I did not see a need fo ran extraoral I&D . I inspected the sites to insure all bleeding was controlled. I removed the throat pack and suctioned the throat. Bilateral gauze pressure dressings were placed. All instrument and sponge count was correct. the patient was allowed to awake from the anesthesia. Once full awake the anesthesia tube was removed and the patient was taken to the recovery room with all vital sign stable. The patient tolerated the surgery very well. I will follow the patient in my office, Rx and instructions will be given upon discharge. I attest to the content of the Intraoperative Record and any orders documented therein. Any exceptions are noted below.
[2022-03-28] MEDS: fentaNYL citrate 100 MCG/2 ML VIAL IV PRN ×4 (13:01→14:10)
--- NOTE | 2022-03-28 16:01 | Anesthesiology Progress Note ---
Date of Service March 28, 2022 Anesthesia Post Procedure Vital Signs Vital Signs: Temp Pulse Pulse Resp BP BP Pulse Ox 03/28/22 15:33 36.6 C 65 16 115/78 95 03/28/22 14:46 37.2 C 68 14 159/90 H 96 03/28/22 14:25 36.9 C 65 16 145/84 H 99 03/28/22 14:10 66 13 137/87 97 03/28/22 13:55 67 12 138/83 98 03/28/22 13:45 71 19 136/82 98 03/28/22 13:35 36.3 C L 67 14 137/84 98 03/28/22 13:25 66 12 130/83 96 03/28/22 13:15 69 13 131/78 98 03/28/22 13:05 65 20 128/75 99 03/28/22 12:55 75 22 128/74 97 03/28/22 12:46 36.2 C L 59 L 21 130/76 99 03/28/22 10:53 37.5 C 76 18 124/76 97 03/28/22 06:07 36.8 C 70 18 106/71 96 03/27/22 22:14 36.9 C 71 16 136/88 97 Pain Intensity Teeth: Pain Intensity: 5 Mouth: Pain Intensity: 3 Transfer of Care Handoff Completed per policy Notes Mental Status: alert / awake / arousable and participated in evaluation Patient Amnestic to Procedure: Yes Nausea / Vomiting: adequately controlled Pain: adequately controlled Airway Patency, RR, SpO2: stable & adequate BP & HR: stable & adequate Hydration State: stable & adequate Anesthetic Complications: no major complications apparent and Pt Satisfied with anesthetic care
--- NOTE | 2022-03-28 16:52 | Hospitalist Progress Note ---
Date of Service March 28, 2022 Assessment & Plan (1) Dental abscess: (2) Anxiety: (3) Depression: (4) Hypothyroidism: Plan: 21yo F with a PMH of depression, anxiety, hypothyroidism and other medical problems who presented with ongoing dental pain and swelling x 4 days and was found to have left mandibular dental abscess. Soft tissue neck CT show left mandibular dental abscess with prominent soft tissue swelling of the left masseter muscles and subcutaneous fat in the left. Leukocytosis resolved S/P Incision and drainage with extraction of left molars 19 and 20 this afternoon Continue IV Unasyn Plan to change to po antibiotic on discharge Continue full liquid for tonight Pain control TSH is 5.8 (elevated) but FT4 is normal 1.07. Patient has been off levothyroxine for past 6 months. PCP to monitor Possible discharge tomorrow to follow up with Oromaxillofacial surgeon outpatient Admission and Anticipated Discharge Date Admission Date: March 26, 2022 Subjective Patient seen and examined on return from OR Reports left jaw/mouth pain is currently controlled Denied fever, headache, nausea, vomiting, abd pain, diarrhea Denied dysuria, freq, urgency, hematuria Denied headache Physical Exam Constitutional: + well hydrated and + obese; no acute distress Eyes: PERRL, conjunctivae normal, anicteric sclerae ENMT: Left facial swelling Respiratory: normal respiratory effort, lungs clear to auscultation Cardiovascular: RRR, no murmur, no edema Gastrointestinal (Abdomen): normal bowel sounds, soft, nontender, no hepatosplenomegaly Musculoskeletal: no cyanosis or clubbing, extremities motor strength 5/5 Neurologic: PERRL, EOMI, accommodation nl, no face palsy, no dysarthria Psychiatric: A+Ox3, euthymic affect Results & Data Results & Data ([facility]) Vital Signs (Past 12 Hours) Vital Signs Temp Pulse Pulse Resp BP BP Pulse Ox 03/28/22 15:33 36.6 C 65 16 115/78 95 03/28/22 14:46 37.2 C 68 14 159/90 H 96 03/28/22 14:25 36.9 C 65 16 145/84 H 99 03/28/22 14:10 66 13 137/87 97 03/28/22 13:55 67 12 138/83 98 03/28/22 13:45 71 19 136/82 98 03/28/22 13:35 36.3 C L 67 14 137/84 98 03/28/22 13:25 66 12 130/83 96 03/28/22 13:15 69 13 131/78 98 03/28/22 13:05 65 20 128/75 99 03/28/22 12:55 75 22 128/74 97 03/28/22 12:46 36.2 C L 59 L 21 130/76 99 03/28/22 10:53 37.5 C 76 18 124/76 97 03/28/22 06:07 36.8 C 70 18 106/71 96
[2022-03-29] MEDS: AMPICILLIN/SULBACTAM SOD 3,000 MG in 0.9 % SODIUM CHLORIDE 100 ML IV SCH ×2 (03:44→09:29)
--- NOTE | 2022-03-29 12:15 | Discharge Summary ---
Date of Service March 29, 2022 Admission HPI Per Admitting Provider This is a 21yo F with a PMH of depression, anxiety, hypothyroidism and other medical problems listed below who presents with ongoing dental pain x 4 days. Endorses dental pain on lower left side of mouth that is constant and sharp. Developed swelling in that area the next day which has extended towards left ear and neck. Was seen in urgent care yesterday and prescribed Augmentin for infection. Also followed up with dentist in [place] but was referred to ED for further evaluation and IV antibiotics. Has been taking tramadol since prescribed by urgent care as well as ibuprofen and Tylenol that has reduced pain. Has decreased appetite and fluid intake due to difficulty fully opening mouth. No shortness of breath or difficulty breathing. No fever, chills, congestion, chest pain, SOB, nausea, vomiting, abdominal pain, dysuria or diarrhea. Not taking any scheduled medications at home. PCP is Dr. Medrano, whom she is due to have thyroid lab work with. Previously on levothyroxine. VSS, leukocytosis of 16, other lab work unremarkable. Covid screen negative. CT findings characteristic of a left mandibular dental abscess with prominent soft tissue swelling of the left masseter muscles and subcutaneous fat on the left. Admission Exam Per Admitting Provider General Appearance:vitals as above, appears ill, morbidly obese Head: normocephalic, atraumatic Eyes:normal inspection, PERRL, conjunctivae normal, anicteric sclerae ENT/neck: external ear and nose normal, edema and erythema of lower left orbital area with extension to premaxillary soft tissues and left anterior neck. Warm and tender to touch. Two finger trismus Respiratory:normal respiratory effort, lungs clear to auscultation, no wheeze, rales, rhonchi. No accessory muscle use Cardiovascular: regular rate, rhythm, no murmur, normal peripheral pulses. Vessels: no JVD Chest: normal inspection of chest Abdomen/GI: normal bowel sounds, soft, nontender, no hepatosplenomegaly Extremities/Musculoskeletal: no cyanosis or clubbing, extremities motor strength 5/5 Neurologic: PERRL, EOMI, accommodation nl, no face palsy, no dysarthria, CN's II-XI intact bilaterally and moves all extremities Psychiatric:A+Ox3, anxious Skin: no rashes, normal color, warm/dry Principal Diagnosis Dental abscess Status incision and drainage and teeth extraction Discharge Exam Constitutional + well hydrated and + obese; no acute distress Left facial swelling remarkably improved Eyes PERRL, conjunctivae normal, anicteric sclerae Respiratory normal respiratory effort, lungs clear to auscultation Cardiovascular RRR, no murmur, no edema Gastrointestinal (Abdomen) normal bowel sounds, soft, nontender, no hepatosplenomegaly Musculoskeletal no cyanosis or clubbing, extremities motor strength 5/5 Neurologic PERRL, EOMI, accommodation nl, no face palsy, no dysarthria Psychiatric A+Ox3, euthymic affect Discharge Data Allergies Allergy/AdvReac Type Severity Reaction Status Date / Time sulfamethoxazole [Bactrim] Allergy Intermediate hives Verified 03/26/22 21:17 trimethoprim [Bactrim] Allergy Intermediate hives Verified 03/26/22 21:17 Consultations 03/26/22 20:28 ED Decision to Admit Stat 03/26/22 21:31 Consult Oromaxillofacial Surgery Routine Procedures Performed Operation Date: 03/28/22 11:30 Actual Procedures p Left Side Incision and Drainage(Not Applicable) - Jeremy Marhsall DMD s Extraction of lower left molars tooth 19 & 20(Left) - Jreemy Marshall DMD Ordered Studies 03/26/22 17:00 CT soft tissue neck w con Stat The patient is status post placement of a dental implant versus root canal involving the first mandibular molar on the left. There is a lucency seen inferior to the root at this site with cortical destruction present. The findings are highly suspicious for dental abscess. There is associated diffuse swelling of the adjacent left side of the face with diffuse edema of the masseter muscles. Skin thickening and subcutaneous edema is also present involving the left side of the face adjacent to the mandible. No enhancing subcutaneous abscess is identified. Salivary glands: Parotid and submandibular salivary glands are within normal limits. The thyroid gland is also within normal limits. Lymph nodes: There are no pathologically enlarged lymph nodes. However, there is mild reactive lymphadenopathy involving the cervical lymph node chains bilaterally. There is no evidence for soft tissue mass within the neck bilaterally. Airway: The cervical airway is widely patent. The epiglottis and aryepiglottic folds are normal bilaterally. The vocal cords are symmetric bilaterally. Vascular structures: No gross vascular abnormalities are seen. Paranasal sinuses: There is prominent mucosal thickening involving the left maxillary sinus. The remaining imaged paranasal sinuses are clear. Osseous structures: No other acute osseous abnormalities are identified. IMPRESSION: 1. CT findings characteristic of a left mandibular dental abscess with prominent soft tissue swelling of the left masseter muscles and subcutaneous fat on the left. 2. Associated reactive lymphadenopathy is present. 3. No enhancing soft tissue abscess is seen. 4. Chronic left maxillary sinusitis is also present. Hospital Course (1) Dental abscess: (2) Anxiety: (3) Depression: (4) Hypothyroidism: 21yo F with a PMH of depression, anxiety, hypothyroidism and other medical problems who presented with ongoing dental pain and swelling x 4 days and was found to have left mandibular dental abscess. Soft tissue neck CT show left mandibular dental abscess with prominent soft tissue swelling of the left masseter muscles and subcutaneous fat in the left. S/P Incision and drainage with extraction of left molars 19 and 20 on 03/28/22 Was treated with IV Unasyn inpatient Had leukocytosis with 16K on admission. Leukocytosis resolved Reports pain is resolved today and did not want any pain medication prescribed on discharge Discharged on 4 more days of Augmentin po to complete antibiotics TSH is 5.8 (elevated) but FT4 is normal 1.07. Patient has been off levothyroxine for past 6 months. PCP to monitor Patient to follow up with Oromaxillofacial surgeon Dr Marshall next week Total Time Total Time Spent Total Time Spent (In Minutes): 40 Total Time Includes: Examination of the Patient, Discharge Planning, Medication Reconciliation and Communication With Other Providers Discharge Plan Discharge Items Patient Disposition: Home - Self-Care Reason For Visit: ODONTOGENIC INFECTION Discharge Diagnosis: Dental abscess Status incision and drainage and teeth extraction Condition on Discharge: Good Activity: Resume your previous activity Non-emergency contact: Primary Care Provider and Surgeon Call non-emergency contact if: you have any medication questions and your symptoms worsen Follow-up/Referrals: Petar Medrano DO [Primary Care Provider] - (Date & Time 04/05/2022 1:40 PM Provider Petar Medrano DO Department [facility] ) Jeremy Marshall DMD [Physician] - Diet: Full liquid and Clear liquid Diet Texture: Easy to Chew Addtl Attending Provider Instructions: Ms Contreras You came to the hospital due to worsening left facial pain/swelling and tooth pains. You were evaluated and noted to have dental abscess. You had incision and drainage as well as two teeth extraction by Dr Marshall. You are being discharged with few more days of antibiotics to complete treatme nt. It was a pleasure taking care of you. Addtl Public Health Outreach Worker Provider Instructions: ADDITIONAL ACTIVITY RECOMMENDATIONS: * [place] teeth after every meal. It is very important to keep your mouth clean to prevent infection. * Starting tonight rinse with the Peridex as directed then 2 x a day * it is very important to keep well hydrated, this prevents fever and possible dry socket pain SPECIAL CARE INSTRUCTIONS: *It is not uncommon that between day 2-4 that your swelling will be at its worst this is very normal, do not be alarmed. * apply heat (hot water bottle or heating pad) for the next two days, as often as possible. * Tomorrow start rinsing your mouth with 1/2 teaspoon salt in 8 ounces warm water. This rinse should be used every 4-6 hours. * You may experience slight nausea. To prevent this, never take your medication on an empty stomach. If nauseated, take small sips of adalberto berkley until you feel better; then you may start on applesauce and toast. * Some swelling is common. It should gradually decrease within 4-5 days. * A certain amount of bleeding is to be expected. It is often possible to control mild oozing by placing folded gauze over the area and biting down for 30 minutes. If you are unable to control excessive bleeding, call Dr Marshall at [phone] * You may experience some discomfort for a few days. If pain or swelling increases, Call Dr Marshall * Return to the office for a follow up check up on: FridayAPRIL 02 at 2:30 pm * office address--[facility]. phone # [phone] Pending Studies at Discharge: Yes (Culture from I/D) Stand-Alone Forms: [facility], Smoking Cessation Medications and DC Order Prescriptions: Continued amoxicillin-pot clavulanate 875-125 mg tablet 1 tab PO BID 4 Days Qty: 8 RF: 0 Discharge Orders: Discharge Order (Routine); Ordered 03/29/22 Ordered By: Stephanie Layne Admission Data Admit Date/Time: 03/26/22 21:25 Attending Provider: Stephanie Layne I. Admit Provider: Gagan Church Primary Care Provider: Petar Medrano Other Providers: Gagna Church ; Jeremy Marshall Other Interventions: Discharge Summary Assessment (RN) Last Done: 03/29/22 10:52
== END 2022-03-29 13:00 | disposition home or self-care (01) | DRG 158 ==
LOC: ED 15:39 → 3N 21:25